=== PATIENT | female | born 1975 | race Caucasian/White ===

== ENCOUNTER 2017-09-30 03:44 | Emergency (ER) | payer SELFPAY ==
[2017-09-30 04:02] VITALS: BP 120/91; PULSE 102; RESP 20; TEMP 98.2
[2017-09-30] MEDS ORDERED: VENLAFAXINE HCL 50 MG TAB PO STA ×2 (04:21)
--- NOTE | 2017-09-30 04:23 | ED ---
Recheck HPI - General Chief Complaint: Recheck/Abnormal Lab/Rx Stated Complaint: Med refill Time Seen by Provider: 09/30/17 04:04 Source: patient Mode of arrival: ambulatory Limitations: no limitations - History of Present Illness Initial Comments: 42-year-old female patient presents to the emergency department today requesting refill of her Effexor prescription. Patient states that she has been out of this medication for the last 4 days. States that she is starting to feel antsy and withdrawal symptoms. States that she cannot focus. States that she has withdrawn from this medication before her symptoms are similar. She states that her nurse practitioner [facility] canceled her appointment so she was unable to refill the prescription. States she does have a new appointment on the . Patient denies any recent rash, fever, chills, shortness breath, chest pain, abdominal pain, nausea, vomiting, diarrhea, constipation, back pain , numbness, tingling, dizziness, weakness, hematuria, dysuria, urinary urgency, urinary frequency, headache, visual changes, or any other complaints. - Related Data Home Medications Medication Instructions Recorded Confirmed Venlafaxine HCl [Effexor XR] 150 mg PO DAILY 09/30/17 09/30/17 Previous Rx's Medication Instructions Recorded Venlafaxine HCl [Effexor XR] 150 mg PO DAILY #7 [email or web address] 09/30/17 Allergies Allergy/AdvReac Type Severity Reaction Status Date / Time No Known Allergies Allergy Verified 09/30/17 04:02 Review of Systems ROS Statement: Those systems with pertinent positive or pertinent negative responses have been documented in the HPI. ROS Other: All systems not noted in ROS Statement are negative. Past Medical History Past Medical History: No Reported History History of Any Multi-Drug Resistant Organisms: None Reported Past Surgical History: Section, Hysterectomy Past Psychological History: Depression Smoking Status: Current every day smoker Past Alcohol Use History: None Reported Past Drug Use History: None Reported General Exam Limitations: no limitations General appearance: alert, in no apparent distress, anxious, other (This is a well-developed, well-nourished adult female patient who appears anxious. Vital signs upon presentation are temperature 98.2F, pulse 102, respirations 20, blood pressure 120/91, pulse ox 100% on room air.) Eye exam: Present: normal appearance, PERRL, EOMI. Absent: scleral icterus, conjunctival injection, periorbital swelling ENT exam: Present: normal exam, normal oropharynx, mucous membranes moist Respiratory exam: Present: normal lung sounds bilaterally. Absent: respiratory distress, wheezes, rales, rhonchi, stridor Cardiovascular Exam: Present: regular rate, normal rhythm, normal heart sounds. Absent: systolic murmur, diastolic murmur, rubs, gallop, clicks GI/Abdominal exam: Present: soft, normal bowel sounds. Absent: distended, tenderness, guarding, rebound, rigid Neurological exam: Present: alert, oriented X3, CN II-XII intact Psychiatric exam: Present: normal affect, normal mood Skin exam: Present: warm, dry, intact, normal color. Absent: rash Course Vital Signs 09/30/17 03:58 Temperature 98.2 F Pulse Rate 102 H Respiratory 20 Rate Blood Pressure 120/91 O2 Sat by Pulse 100 Oximetry Medical Decision Making - Medical Decision Making 42-year-old female patient presented to the emergency department today requesting refill on her Effexor prescription. Physical examination is unremarkable. Patient was given a dose here in the emergency department. She was given a prescription for 1 weeks worth of Effexor. She is instructed to follow-up with her nurse practitioner she has planned. She is instructed to return here immediately for any new, worsening, or concerning symptoms. She verbalizes understanding and agrees with this plan. Disposition Clinical Impression: Encounter for medication refill Disposition: HOME SELF-CARE Condition: Good Instructions: Medicine Refill (ED) Additional Instructions: Follow-up with your psychiatrist as soon as possible for med refills. Return here immediately for any new, worsening, or concerning symptoms. Prescriptions: Venlafaxine HCl [Effexor XR] 150 mg PO DAILY #7 tab.[email or web address] Referrals: None,Stated [Primary Care Provider] - 1-2 days Time of Disposition: 04:22
[2017-09-30] MEDS ORDERED: VENLAFAXINE HCL ER 150 MG CAP PO ONE (04:30)
== END 2017-09-30 04:49 | disposition home or self-care (01) ==
LOC: EC 03:44
DX: Z76.0 Encounter for issue of repeat prescription (principal); F32.9 Major depressive disorder, single episode, unspecified; F17.200 Nicotine dependence, unspecified, uncomplicated; Z79.899 Other long term (current) drug therapy
CPT/HCPCS: 99281

== ENCOUNTER 2017-10-04 14:17 | Inpatient (IN) | payer OTHER ==
--- NOTE | 2017-10-04 14:59 | ED ---
Psych HPI - General Chief Complaint: Psychiatric Symptoms Stated Complaint: mental health Time Seen by Provider: 10/04/17 14:35 Source: patient, RN notes reviewed Mode of arrival: ambulatory Limitations: no limitations - History of Present Illness Initial Comments: This a 42-year-old female presents emergency Department with chief complaint of psychiatric issues. Patient states that she has not been on her Effexor and is causing her to feel depressed and suicidal. Patient does admit to drug use. She states that she is on methamphetamine user. Patient states she's not use today she states that she used yesterday. Patient is very fidgety though she states that her feet are just itchy. Patient denies any physical complaints. Patient denies chest pain, shortness breath, headache, dizziness, nausea vomiting diarrhea constipation. Patient states she is crying because she is depressed. - Related Data Previous Rx's Medication Instructions Recorded Venlafaxine HCl [Effexor XR] 150 mg PO DAILY #7 tab.[email or web address] 09/30/17 Allergies Allergy/AdvReac Type Severity Reaction Status Date / Time No Known Allergies Allergy Verified 10/04/17 15:07 Review of Systems ROS Statement: Those systems with pertinent positive or pertinent negative responses have been documented in the HPI. ROS Other: All systems not noted in ROS Statement are negative. Past Medical History Past Medical History: No Reported History History of Any Multi-Drug Resistant Organisms: None Reported Past Surgical History: Section, Hysterectomy Past Psychological History: Depression Smoking Status: Current every day smoker Past Alcohol Use History: None Reported Past Drug Use History: None Reported General Exam Limitations: no limitations General appearance: alert, in no apparent distress Head exam: Present: atraumatic, normocephalic, normal inspection Eye exam: Present: normal appearance, PERRL, EOMI. Absent: scleral icterus, conjunctival injection, periorbital swelling ENT exam: Present: normal exam, normal oropharynx, mucous membranes moist, TM's normal bilaterally, normal external ear exam Neck exam: Present: normal inspection, full ROM. Absent: tenderness, meningismus, lymphadenopathy Respiratory exam: Present: normal lung sounds bilaterally. Absent: respiratory distress, wheezes, rales, rhonchi, stridor Cardiovascular Exam: Present: normal rhythm, tachycardia, normal heart sounds. Absent: systolic murmur, diastolic murmur, rubs, gallop, clicks GI/Abdominal exam: Present: soft, normal bowel sounds. Absent: distended, tenderness, guarding, rebound, rigid Neurological exam: Present: alert, oriented X3, CN II-XII intact Psychiatric exam: Present: anxious, other (Tearful) Skin exam: Present: warm, dry, intact, normal color. Absent: rash Course Vital Signs 10/04/17 14:22 Temperature 97.7 F Pulse Rate 127 H Respiratory 24 Rate Blood Pressure 134/82 O2 Sat by Pulse 98 Oximetry Disposition Clinical Impression: Psychosis, Suicidal ideation Disposition: ADMITTED IP TO THIS HOSP Condition: Stable Referrals: None,Stated [REFERRING] - 1-2 days
[2017-10-04] MEDS ORDERED: LORazepam 1 MG TAB PO STA (16:38)
[2017-10-04] MEDS ORDERED: ZIPRASIDONE 20 MG VIAL IM PRN (16:59)
[2017-10-04] MEDS ORDERED: MAGNESIUM HYDROXIDE 2,400 MG/10 ML CUP PO PRN (16:59)
[2017-10-04] MEDS ORDERED: ACETAMINOPHEN TAB 325 MG TAB PO PRN (16:59)
[2017-10-04] MEDS ORDERED: MAG HYDROX/AL HYDROX/SIMETH 30 ML CUP PO PRN (16:59)
[2017-10-04] MEDS ORDERED: LORazepam 2 MG/ML INJ IM PRN (17:03)
[2017-10-04 17:05] LABS: Amphetamine Screen,Urine Detected (NotDetected); Barbiturate Screen,Urine Not Detected (NotDetected); Benzodiazepines Screen,Urine Not Detected (NotDetected); Cocaine Screen,Urine Not Detected (NotDetected); Methadone Screen, Urine Not Detected (NotDetected); Opiate Screen,Urine Not Detected (NotDetected); Oxycodone Screen, Urine Not Detected (NotDetected); Phencyclidine Screen,Urine Not Detected (NotDetected); Tricyclic Antidepressant,Urine Not Detected (NotDetected); Urn Cannabinoid Scrn Not Detected (NotDetected)
[2017-10-04 17:09] LABS: Appearance,Urine Cloudy (Clear); Bacteria,Urine Rare /hpf; Bilirubin,Urine Negative (Negative); Blood,Urine Negative (Negative); Color,Urine Yellow; Glucose,Urine (UA) Negative (Negative); Hyaline Casts,Urine 21 /lpf (0-2); Ketones,Urine Negative (Negative); Leukocyte Esterase,Urine Moderate (Negative); Mucus,Urine Many /hpf; Nitrite,Urine Negative (Negative); Protein,Urine 1+ (Negative); RBC,Urine 4 /hpf (0-5); Specific Gravity,Urine 1.022 (1.001-1.035); Urobilinogen,Urine <2.0 mg/dL (<2.0); WBC,Urine 85 /hpf (0-5)
[2017-10-04] MEDS ORDERED: IBUPROFEN 400 MG TAB PO PRN (19:59)
--- NOTE | 2017-10-04 21:06 | CONS ---
CONSULTATION REASON FOR CONSULTATION: Advice regarding UTI and other medical issues requested by Psychiatry. HISTORY OF PRESENT ILLNESS: This is a 42-year-old woman with a past medical history of depression, history of polysubstance abuse, who was admitted for psychiatric evaluation, suicidal ideation patient. The patient is complaining of left jaw pain, has an earache. She also complains of dysuria. Urine exam shows history of UTI. There is no history of fever, rigors. No history of headache, loss of consciousness, seizures. PAST MEDICAL HISTORY: History of depression, history of polysubstance abuse. HOME MEDICATIONS: Effexor XR 150 mg daily. ALLERGIES: None. FAMILY HISTORY: Patient is adopted, unknown. SOCIAL HISTORY: History of smoking. No history of alcohol intake. REVIEW OF SYSTEMS: ENT: As mentioned earlier. CARDIOVASCULAR: No angina, palpitations. RESPIRATORY: No cough or hemoptysis. GI: No nausea or vomiting. : No dysuria. NERVOUS: No numbness or weakness. ALLERGY/IMMUNOLOGY: No asthma or hay fever. MUSCULOSKELETAL: As mentioned earlier. HEMATOLOGY/ONCOLOGY: No history of anemia. ENDOCRINE: No history of diabetes, hypothyroidism. CONSTITUTIONAL: As mentioned earlier. DERMATOLOGY: Negative. RHEUMATOLOGY: Negative. PSYCHIATRY: As mentioned earlier. PHYSICAL EXAMINATION: Alert, oriented x3. Pulse 94, blood pressure 130/78, respirations 20, temperature 97 degrees, pulse ox 100% on room air. HEENT: Conjunctivae normal. Oral mucosa moist. Oral cavity shows some swelling of the gums appreciated. NECK: No jugular venous distention. No carotid bruits. No lymph node enlargement. CARDIOVASCULAR: S1, S2 muffled. RESPIRATORY: Breath sounds diminished in the bases. No rhonchi. No crackles. ABDOMEN: Soft, nontender. No mass palpable. LEGS: No edema. No swelling. NERVOUS SYSTEM: Higher functions as mentioned earlier. Cranial nerves 2-12 grossly intact. The patient moves all normal and symmetrical. Head movements are full in all directions. No nystagmus. Pupils are normal. Otherwise, the tongue protrudes in the midline. Moves all 4 limbs. Power is normal. No weakness and no sensory abnormalities. LYMPHATIC: No lymphadenopathy in neck or axillae. JOINTS: No active deforming arthropathy. LABS: At this time shows CBC not available. The UA shows possible UTI, 85 WBCs. Drug screen positive for amphetamines and methamphetamines. ASSESSMENT: 1. Depression with suicidal ideations. 2. Acute urinary tract infection. 3. Left dental pain with possible dental caries. 4. Depression. 5. Polysubstance abuse, including cocaine, marijuana, methamphetamine. 6. History of nicotine dependence. RECOMMENDATIONS AND DISCUSSION: In this 42-year-old woman who presented with multiple complex medical issues, will monitor the patient closely. I would recommend a course of antibiotics. Otherwise, I would also continue symptomatic treatment for the pain. I will be happy to review any abnormal labs. Otherwise, the patient may be asked to follow with primary physician closely after discharge. Thank you Dr. Novak, for letting us participate in the care of this patient. MMALEXL / IJN: [id number] /
[2017-10-04] MEDS: SULFAMETHOX-TMP 800-160MG 1 EACH TAB PO SCH (21:09)
[2017-10-05 07:04] VITALS: RESP 16
[2017-10-05] MEDS: SULFAMETHOX-TMP 800-160MG 1 EACH TAB PO SCH ×2 (09:37→21:05)
[2017-10-05] MEDS: NICOTINE 14MG/24HR PATCH TRANSDERM SCH (09:37)
[2017-10-05 09:42] LABS: Basophils % (A) 1 %; Eosinophils # (A) 0.1 k/uL (0-0.7); Eosinophils % (A) 2 %; HCT 44.5 % (34.0-46.0); HGB 15.3 gm/dL (11.4-16.0); Lymphocytes # (A) 1.9 k/uL (1.0-4.8); Lymphocytes % (A) 28 %; MCH 32.4 pg (25.0-35.0); MCHC 34.4 g/dL (31.0-37.0); MCV 94.3 fL (80.0-100.0); Mean Platelet Volume 7.4; Monocytes # (A) 0.3 k/uL (0-1.0); Monocytes % (A) 4 %; Neutrophils # (A) 4.3 k/uL (1.3-7.7); Neutrophils % (A) 64 %; Platelet Count 203 k/uL (150-450); RBC 4.72 m/uL (3.80-5.40); RDW 11.9 % (11.5-15.5); WBC 6.8 k/uL (3.8-10.6)
[2017-10-05 10:04] LABS: ALT 120 U/L (9-52); AST 70 U/L (14-36); Albumin 3.7 g/dL (3.5-5.0); Alkaline Phosphatase 58 U/L (38-126); Anion Gap 10 mmol/L; Blood Urea Nitrogen 14 mg/dL (7-17); Calcium 9.3 mg/dL (8.4-10.2); Carbon Dioxide 27 mmol/L (22-30); Chloride 104 mmol/L (98-107); Glucose 93 mg/dL (74-99); Potassium 4.5 mmol/L (3.5-5.1); Sodium 141 mmol/L (137-145); Total Bilirubin 0.2 mg/dL (0.2-1.3); Total Protein 6.4 g/dL (6.3-8.2)
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
[2017-10-05] MEDS: VENLAFAXINE HCL ER 37.5 MG CAP PO SCH (11:36)
[2017-10-05] MEDS: ARIPiprazole 2 MG TAB PO SCH (21:05)
[2017-10-05] MEDS: MELATONIN 3 MG TABLET PO SCH (21:05)
[2017-10-06] MEDS: SULFAMETHOX-TMP 800-160MG 1 EACH TAB PO SCH ×2 (09:26→20:11)
[2017-10-06] MEDS: VENLAFAXINE HCL ER 37.5 MG CAP PO SCH (09:45)
[2017-10-06] MEDS: NICOTINE 14MG/24HR PATCH TRANSDERM SCH (09:45)
--- NOTE | 2017-10-06 14:29 | P.PN ---
Progress Note - Text Progress Note Date: 10/06/17 Interval history: Patient reports that she has some jaw discomfort today. We discussed that she has Tylenol and Motrin ordered as needed. She seems to describe her mood is doing better than when she was admitted to the hospital. She is seen in cross coverage for Dr. Novak. She does not seem to voice any adverse psychotropic medication side effects. Mental status exam: She is alert and cooperative with the interview. Her affect overall is restricted. Her mood she describes is doing better overall. She denies any thoughts of harm to self or others. I do not see any evidence of psychosis. She does not display any agitation. Plan: Patient will be continued on current psychotropic medication regimen. We' ll continue to cover this patient for Dr. Novak through the weekend.
[2017-10-06] MEDS: LORazepam 1 MG TAB PO PRN (20:11)
[2017-10-06] MEDS: MELATONIN 3 MG TABLET PO SCH (20:11)
[2017-10-06] MEDS: ARIPiprazole 2 MG TAB PO SCH (20:11)
[2017-10-07] MEDS: VENLAFAXINE HCL ER 37.5 MG CAP PO SCH (08:19)
[2017-10-07] MEDS: SULFAMETHOX-TMP 800-160MG 1 EACH TAB PO SCH ×2 (08:19→20:09)
[2017-10-07] MEDS: NICOTINE 14MG/24HR PATCH TRANSDERM SCH (08:20)
--- NOTE | 2017-10-07 15:58 | P.PN ---
Progress Note - Text Progress Note Date: 10/07/17 Interval history: Patient is seen in cross coverage today for Dr. Novak. She relays that her mood is doing better overall. She is having less of the crying spells and her suicidal ideations are less frequent now. She does not voice any adverse psychotropic medication side effects. She says she still dealing with some jaw pain. Her sleep is interrupted last night. She does seem to be eating enough. Mental status exam: She is alert and cooperative with the interview. Her speech is fluent, not rapid or pressured. Her thought processes are organized. Her mood is described as improved. She states that her thoughts of suicide have become less frequent. She denies any thoughts of harm to others. No evidence of psychosis or agitation. Plan: We'll maintain current psychotropic medication regimen. Dr. Novak to resume care this patient starting tomorrow. Continue to monitor regarding any suicidal ideations.
[2017-10-07] MEDS: ARIPiprazole 2 MG TAB PO SCH (20:09)
[2017-10-07] MEDS: MELATONIN 3 MG TABLET PO SCH (20:10)
[2017-10-08] MEDS: VENLAFAXINE HCL ER 37.5 MG CAP PO SCH (08:25)
[2017-10-08] MEDS: NICOTINE 14MG/24HR PATCH TRANSDERM SCH (08:25)
[2017-10-08] MEDS: SULFAMETHOX-TMP 800-160MG 1 EACH TAB PO SCH ×2 (08:25→21:19)
[2017-10-08] MEDS ORDERED: VENLAFAXINE HCL ER 37.5 MG CAP PO STA (08:45)
[2017-10-08] MEDS: ARIPiprazole 2 MG TAB PO SCH (09:00)
--- NOTE | 2017-10-08 09:50 | P.PN ---
Progress Note - Text Progress Note Date: 10/08/17 Interval History: Patient is a 42-year-old female who was seen this morning and she reports that her crying spells have decreased significantly, she is no longer having any suicidal ideation but still feeling tired and hopeless. Patient is unable to verbalize why she is continuing to feel hopeless. She states that she has not been sleeping well and is waking up every hour. Patient states that she is not attending any groups but plans on doing so today. Patient reports that her focus has improved. She reported no side effects from the medication. Mental Status: Appearance/Attitude: Patient was in her room lying in bed, in a hospital gown, makes good eye contact and is cooperative. Behavior: Patient does not display any psychomotor agitation or retardation. Speech/Language: Patient's speech is spontaneous and of normal volume and rhythm and she is coherent. Thought Process: Patient is more goal-directed, she is less vague in her answers there is no evidence of loose associations or flight of ideas and she is not circumstantial Thought Content: Patient denies auditory or visual hallucinations, no delusions or paranoid ideation were elicited. Patient states that her crying spells have decreased significantly but she reports still feeling tired secondary to not sleeping through the night. She states that her appetite is good. She continues to report feeling hopeless. Suicidal/Homicidal Ideation: Patient denies any current suicidal or homicidal ideation. Sensorium/Cognition: Patient is alert and oriented to person, place, and time and her recent and remote memory are grossly intact. Mood/Affect: Patient's mood is less depressed, her affect is brighter Insight/Judgment: Patient's insight and judgment are fair Assessment: Patient reports that her crying spells and decreased, she is not having any suicidal thoughts but continues to feel hopeless and tired. She states her sleep is still disrupted. Patient was encouraged to attend groups that she has not been doing so and is spending the time in her room in bed during the day. Patient reports no side effects from the medications and the patient is more focused today and less vague in her responses. Plan: Will increase of Effexor to 75 mg extended release in the morning to target her depression and change the Abilify 2 mg from at bedtime to morning to see if this is caused any sleep disruption. Patient will also continue on melatonin 3 mg at bedtime to target her sleep. Patient was encouraged to stay up and out of bed today and attend groups and activities. Patient continues to require hospitalization to further stabilize her mood. Will order free T4 due to low TSH
[2017-10-08] MEDS: MELATONIN 3 MG TABLET PO SCH (21:19)
[2017-10-09] MEDS: SULFAMETHOX-TMP 800-160MG 1 EACH TAB PO SCH ×2 (08:22→20:42)
[2017-10-09] MEDS: ARIPiprazole 2 MG TAB PO SCH (08:22)
[2017-10-09] MEDS: NICOTINE 14MG/24HR PATCH TRANSDERM SCH (08:22)
[2017-10-09] MEDS: VENLAFAXINE HCL ER 75 MG CAP PO SCH (08:22)
--- NOTE | 2017-10-09 11:26 | P.PN ---
Progress Note - Text Progress Note Date: 10/09/17 Interval History: Patient is a 42-year-old female who was seen today and reports that moving the Abilify to the morning worked much better for her. She states that she slept through the evening without any interruption and feels rested and motivated this morning. She states that she does not feel like returning to bed and feels like attending groups and activities. She states that she is not feeling suicidal and states that she is not feeling as depressed. She reports that her thoughts are also more organized. Patient states that she is on having any side effects from the medication. Mental Status: Appearance/Attitude: Patient is appropriately dressed, makes good eye contact and is cooperative. Behavior: Patient does not exhibit any psychomotor agitation or retardation. Speech/Language: Patient is spontaneous, speech is of normal volume and rhythm and she is coherent. Thought Process: Patient is goal-directed, there is no evidence of loose associations or flight of ideas and she is not circumstantial or tangential. Thought Content: Patient denies any auditory or visual hallucinations and no delusions or paranoid ideation were elicited. Patient reports that she slept well last evening and feels rested and motivated this morning. She states that she is feeling more energized and has an interest to do things. Patient reports that her appetite is good. She states that her thinking is much clearer and more organized. Suicidal/Homicidal Ideation: Patient denies any current suicidal or homicidal ideation. Sensorium/Cognition: Patient is alert and oriented to person, place, and time and her recent and remote memory are grossly intact, the patient states that she feels more organized and able to focus Mood/Affect: Patient's mood is euthymic and her affect is appropriate Insight/Judgment: Patient's insight and judgment are fair. Assessment: Patient reports feeling less depressed, more organized and focused and also more motivated this morning and she slept well last night without interruption. She reports no side effects from the medication and feels the move of the Abilify to the morning has been beneficial. She states that she is not having any suicidal ideation and is ready for discharge. Patient states that she will be living with a friend call what and will follow up at [facility] after discharge. Plan: Patient will continue on Effexor 75 mg extended release in the morning, Abilify 2 mg in the morning and melatonin 3 mg at bedtime. She reports no side effects from the medications and states that her mood has been improving and has her sleep. Patient and I discussed discharge tomorrow when she was agreeable with this plan, she will follow up with [facility].
[2017-10-09] MEDS: MELATONIN 3 MG TABLET PO SCH (20:43)
[2017-10-09] MEDS: LORazepam 1 MG TAB PO PRN (20:44)
[2017-10-10 06:55] VITALS: BP 107/55; PULSE 84; TEMP 98
[2017-10-10] MEDS: VENLAFAXINE HCL ER 75 MG CAP PO SCH (08:09)
[2017-10-10] MEDS: ARIPiprazole 2 MG TAB PO SCH (08:09)
[2017-10-10] MEDS: NICOTINE 14MG/24HR PATCH TRANSDERM SCH (08:09)
[2017-10-10] MEDS: SULFAMETHOX-TMP 800-160MG 1 EACH TAB PO SCH (08:09)
--- NOTE | 2017-10-10 08:59 | P.DS ---
Providers Date of admission: 10/04/17 16:53 Expected date of discharge: 10/10/17 Attending physician: Adelia Novak MD Consults: 10/04/17 16:59 Consult Physician Routine Consulting Provider: Jeanette Gray Consult Reason/Comments: Medical Management Do you want consulting provider notified?: Yes Primary care physician: [facility] Course: Discharge Diagnosis: Substance-induced depressive disorder, methamphetamine use disorder, mild Reason for Admission: Patient is a 42-year-old female who brought herself to the emergency room reporting that she had thoughts of suicide with a plan to take an overdose. Patient states that she has been treated at [facility] and had been on Effexor 150 mg daily but for the last 1-1/2 weeks has not been taking any medication because she ran out and states that she is unsure of why her insurance was canceled. Patient states that the Effexor was helping for her depression when it is been increased to 150 back in March but for the last several months it has not been working. She states that she was told to start Abilify and given a prescription but she did not fill the prescription her take the medication. Patient reports that she is tired of failing in life, doesn't have any housing and can't keep a job and continues to self sabotage. She states that she's been using methamphetamine every other week and uses this to help her focus. She states that she quits her jobs because she just doesn't feel like going. Patient states that she is either sleeping too much or not enough and continues to feel tired, with decreased interest and motivation to do things and not caring for her ADLs. She states that she feels hopeless and helpless. She states she is either overeating or not eating at all. Patient states that she can't recall when she was last seen at [facility] and thinks that it was over several months ago. Patient states she thought of suicide with an overdose of medication. Patient states that the first time she was treated for depression was when she was 28 years old she was hospitalized after cutting her wrists in a suicide attempt and she was 2 months at the time. She states that this will be her second inpatient psychiatric admission. Patient reports similar symptoms in the past, no other suicide attempts and states that she has never been able to keep a job for any length of time. 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 Patient also became tearful when discussing that her children were taken away from her in 2010 because she wasn't stable, she states due to not working and not having a home. She states that her son will be 17 soon and her daughter is 13 years of age from 2 different partners. Patient does not endorse any symptoms of paranoia or delusional ideation currently or in the past, does not endorse any manic symptoms and does not endorse any anxiety symptoms. Patient states that she has a hard time following through with any thing, can't keep a job, doesn't keep her follow-up appointments and states that she feels like a failure. Mental status on Admission: Appearance/Attitude: Patient is dressed in a hospital gown, makes intermittent eye contact and is cooperative. Behavior: Patient does not exhibit any psychomotor agitation or retardation. Speech/Language: Speech is spontaneous and of normal volume and rhythm and she is coherent. Thought Process: Patient needs redirection to remain goal-directed, at times she is vague, there is no evidence of loose association or flight of ideas. Thought Content: Patient denies any auditory or visual hallucinations and no delusions or paranoid ideation were elicited. Patient reports that she has no motivation or interest to do things and is feeling tired and hopeless. Patient states she is overeating some days and not eating other days, she is also oversleeping or not sleeping well. Patient reports that she was not caring for her ADLs at home. Patient states that she feels like a failure and is self sabotaging all the time. She states that she can't keep a job and was using methamphetamine to improve her focus. Suicidal/Homicidal Ideation: Patient states she continues to have suicidal thoughts, no current plan or intent to act and no current homicidal ideation Sensorium/Cognition: Patient is alert and oriented to person, place, and time and her recent and remote memory are grossly intact, the patient is vague at times with her responses to questions Mood/Affect: Patient's mood is irritable, she was tearful at times and her affect was appropriate to her mood Insight/Judgment: Patient's insight and judgment are fair Hospital Course: Patient was admitted on a voluntary basis and placed on routine precautions and group and activity therapy were ordered. Patient also had routine laboratory studies and a medical consultation. Patient reported that she felt the Effexor had been beneficial for her and so it was restarted at 37.5 mg extended release in the morning. Patient was having difficulty organizing her thoughts, stated that Abilify had been recommended to be added and so we began Abilify 2 mg initially at bedtime. Patient had difficulty sleeping and was waking up repeatedly and the Abilify was moved to the morning and melatonin 3 mg at bedtime was begun. Patient's Effexor was increased to 75 mg in the morning and the patient began to notice a change. Patient became more organized in her thinking, she reported increased energy and motivation to do things and began to attend groups and activities. Patient reported her sleep improved and she was sleeping through the night. Patient no longer reported feeling depressed, hopeless or like a failure. Patient reported that she had energy to do things and states that this is the reason that she was using methamphetamine in the past was to improve her energy level. Patient began attending groups and activities and participating and stated that those were helpful, she reported no longer feeling depressed, like a failure and had energy and motivation to do things. Patient reported no side effects from the medication. Patient was placed on Bactrim for a 7 day course secondary to her urinalysis. Patient felt she was ready to be discharged. Allergies No Known Allergies Allergy (Verified 10/04/17 17:27) Laboratory Last Values WBC 6.8 k/uL (3.8-10.6) 10/05/17:17 RBC 4.72 m/uL (3.80-5.40) 10/05/17 09:17 Hgb 15.3 gm/dL (11.4-16.0) 10/05/17 09:17 Hct 44.5 % (34.0-46.0) 10/05/17 09:17 MCV 94.3 fL (80.0-100.0) 10/05/17 09:17 MCH 32.4 pg (25.0-35.0) 10/05/17 09:17 MCHC 34.4 g/dL (31.0-37.0) 10/05/17 09:17 RDW 11.9 % (11.5-15.5) 10/05/17 09:17 Plt Count 203 k/uL (150-450) 10/05/17 09:17 Neutrophils % 64 % 10/05/17 09:17 Lymphocytes % 28 % 10/05/17 09:17 Monocytes % 4 % 10/05/17 09:17 Eosinophils % 2 % 10/05/17 09:17 Basophils % 1 % 10/05/17 09:17 Neutrophils # 4.3 k/uL (1.3-7.7) 10/05/17 09:17 Lymphocytes # 1.9 k/uL (1.0-4.8) 10/05/17 09:17 Monocytes # 0.3 k/uL (0-1.0) 10/05/17 09:17 Eosinophils # 0.1 k/uL (0-0.7) 10/05/17 09:17 Basophils # 0.0 k/uL (0-0.2) 10/05/17 09:17 Sodium 141 mmol/L (137-145) 10/05/17 09:17 Potassium 4.5 mmol/L (3.5-5.1) 10/05/17 09:17 Chloride 104 mmol/L (98-107) 10/05/17 09:17 Carbon Dioxide 27 mmol/L (22-30) 10/05/17 09:17 Anion Gap 10 mmol/L 10/05/17 09:17 BUN 14 mg/dL (7-17) 10/05/17 09:17 Creatinine 0.70 mg/dL (0.52-1.04) 10/05/17 09:17 Est GFR (CKD-EPI)AfAm >90 (>60 ml/min/1.73 sqM) 10/05/17 09:17 Est GFR (CKD-EPI)NonAf >90 (>60 ml/min/1.73 sqM) 10/05/17 09:17 Glucose 93 mg/dL (74-99) 10/05/17 09:17 Calcium 9.3 mg/dL (8.4-10.2) 10/05/17 09:17 Total Bilirubin 0.2 mg/dL (0.2-1.3) 10/05/17 09:17 AST 70 U/L (14-36) H 10/05/17 09:17 ALT 120 U/L (9-52) H 10/05/17 09:17 Alkaline Phosphatase 58 U/L (38-126) 10/05/17 09:17 Total Protein 6.4 g/dL (6.3-8.2) 10/05/17 09:17 Albumin 3.7 g/dL (3.5-5.0) 10/05/17 09:17 TSH 0.447 mIU/L (0.465-4.680) L 10/05/17 09:17 Free T4 0.88 ng/dL (0.78-2.19) 10/05/17 09:17 Urine Color Yellow 10/04/17 16:36 Urine Appearance Cloudy (Clear) H 10/04/17 16:36 Urine pH 6.0 (5.0-8.0) 10/04/17 16:36 Ur Specific [place] 1.022 (1.001-1.035) 10/04/17 16:36 Urine Protein 1+ (Negative) H 10/04/17 16:36 Urine Glucose (UA) Negative (Negative) 10/04/17 16:36 Urine Ketones Negative (Negative) 10/04/17 16:36 Urine Blood Negative (Negative) 10/04/17 16:36 Urine Nitrite Negative (Negative) 10/04/17 16:36 Urine Bilirubin Negative (Negative) 10/04/17 16:36 Urine Urobilinogen <2.0 mg/dL (<2.0) 10/04/17 16:36 Ur Leukocyte Esterase Moderate (Negative) H 10/04/17 16:36 Urine RBC 4 /hpf (0-5) 10/04/17 16:36 Urine WBC 85 /hpf (0-5) H 10/04/17 16:36 Urine Bacteria Rare /hpf (None) H 10/04/17 16:36 Hyaline Casts 21 /lpf (0-2) H 10/04/17 16:36 Urine Mucus Many /hpf (None) H 10/04/17 16:36 Urine HCG, Qual Not Detected (Not Detectd) 10/04/17 16:36 Urine Opiates Screen Not Detected (NotDetected) 10/04/17 16:36 Ur Oxycodone Screen Not Detected (NotDetected) 10/04/17 16:36 Urine Methadone Screen Not Detected (NotDetected) 10/04/17 16:36 Ur Propoxyphene Screen Not Detected (NotDetected) 10/04/17 16:36 Ur Barbiturates Screen Not Detected (NotDetected) 10/04/17 16:36 U Tricyclic Antidepress Not Detected (NotDetected) 10/04/17 16:36 Ur Phencyclidine Scrn Not Detected (NotDetected) 10/04/17 16:36 Ur Amphetamines Screen Detected (NotDetected) H 10/04/17 16:36 U Methamphetamines Scrn Detected (NotDetected) H 10/04/17 16:36 U Benzodiazepines Scrn Not Detected (NotDetected) 10/04/17 16:36 Urine Cocaine Screen Not Detected (NotDetected) 10/04/17 16:36 U Marijuana (THC) Screen Not Detected (NotDetected) 10/04/17 16:36 Discharge Mental Status: Appearance/Attitude: Patient was appropriately dressed , made good eye contact and was cooperative Behavior: Patient did not display any psychomotor agitation or retardation. Speech/Language: Patient's speech was spontaneous of normal volume and rhythm and she was coherent Thought Process: Patient was goal-directed she was not tangential or circumstantial and no loose association or flight of ideas were elicited. Thought Content: Patient denied auditory and visual hallucinations and no delusions or paranoid ideation were elicited. Patient reported that she was no longer feeling like a failure or hopeless. She stated that she had energy and interest and motivation to do things. She reported that her sleep and appetite were good. Suicidal/Homicidal Ideation: Patient denied any current suicidal or homicidal ideation. Sensorium/Cognition: Patient was alert and oriented to person, place, and time and her recent and remote memory were grossly intact. Patient was much more organized in her thinking Mood/Affect: Patient's mood was pleasant and her affect was appropriate Insight/Judgment: Patient's insight and judgment are fair Risk Assessment: Patient's risk of self-harm remains moderate should she use drugs, been noncompliant with follow-up and medication Discharge Plan: Patient will be discharged to live with a friend, states she will look for work. Patient will continue on Abilify 2 mg in the morning, Effexor 75 mg extended release in the morning and states that she would like to try nicotine patch to stop smoking. Patient will also continue on melatonin 3 mg at bedtime. Patient will complete her 7 day course of treatment with Bactrim. Patient will follow up at [facility] and was encouraged to be compliant with medication and follow-up appointments. Patient was encouraged to avoid any alcohol or drugs. Patient will be given a prescription for the Abilify, Effexor, nicotine patch and Bactrim patient will purchase melatonin [id number]. Patient Condition at Discharge: Stable Plan - Discharge Summary Discharge Rx Participant: No New Discharge Prescriptions: New ARIPiprazole [Abilify] 2 mg PO DAILY #14 tab Melatonin 3 mg PO HS tablet Nicotine 14Mg/24Hr Patch [Habitrol] 1 patch TRANSDERM DAILY #28 patch Sulfamethox-Tmp 800-160Mg [Bactrim DS 800-160 mg] 1 each PO BID #3 tab Venlafaxine HCl ER [Effexor XR] 75 mg PO DAILY #14 cap.er.24h Discontinued Venlafaxine HCl [Effexor XR] 150 mg PO DAILY #7 tab.er.24 Discharge Medication List ARIPiprazole [Abilify] 2 mg PO DAILY #14 tab 10/10/17 [Rx] Melatonin 3 mg PO HS tablet 10/10/17 [Rx] Nicotine 14Mg/24Hr Patch [Habitrol] 1 patch TRANSDERM DAILY #28 patch 10/10/17 [ Rx] Sulfamethox-Tmp 800-160Mg [Bactrim DS 800-160 mg] 1 each PO BID #3 tab 10/10/17 [Rx] Venlafaxine HCl ER [Effexor XR] 75 mg PO DAILY #14 cap.er.24h 10/10/17 [Rx] Follow up Appointment(s)/Referral(s): [facility] [Outside] - 10/11/17 9:00 am (10-11-17 @ 9:00 with Juanis Mcarthur and Shanon Ross 10-23-17 @ 8:00 with [facility]) [facility] [NON[facility]STAFF] - As Needed Patient Instructions/Handouts: Brief Psychotic Disorder (DC), Suicide Prevention for Adults (DC) Activity/Diet/Wound Care/Special Instructions: Activity and diet as tolerated. Avoid the use of street drugs and alcohol. Remove all firearms from home. Take all medications as prescribed. When you are in need of refills of your medication please contact your medical provider and/ or outpatient psychiatrist to have this done. Please go to scheduled outpatient appointment for aftercare. If symptoms return or become worse you can call the Crisis Line at and/or go to the nearest emergency room for an evaluation. Discharge Disposition: HOME SELF-CARE
== END 2017-10-10 13:31 | disposition home or self-care (01) | DRG 897 ==
LOC: EC 14:17 → 3MHU 16:53
PROVIDERS: ADMIT Psychiatry & Neurology Psychiatry; ATTEND Psychiatry & Neurology Psychiatry
DX: F15.14 Other stimulant abuse with stimulant-induced mood disorder (principal); F14.10 Cocaine abuse, uncomplicated; R45.851 Suicidal ideations; N39.0 Urinary tract infection, site not specified; F15.10 Other stimulant abuse, uncomplicated; F17.200 Nicotine dependence, unspecified, uncomplicated; F32.9 Major depressive disorder, single episode, unspecified; K08.89 Other specified disorders of teeth and supporting structures; Z62.810 Personal history of physical and sexual abuse in childhood; Z65.3 Problems related to other legal circumstances; Z79.899 Other long term (current) drug therapy; Z90.710 Acquired absence of both cervix and uterus; Z91.19 Patient's noncompliance with other medical treatment and regimen; Z91.410 Personal history of adult physical and sexual abuse
CPT/HCPCS: 80053; 80306; 81001; 81025; 82075; 84439; 84443; 85025; 99285

== ENCOUNTER 2018-10-02 17:09 | Emergency (ER) | payer OTHER ==
[2018-10-02 18:06] VITALS: BP 117/72; PULSE 86; RESP 16; TEMP 98.3
--- NOTE | 2018-10-02 19:06 | ED ---
General Adult HPI - General Chief complaint: Upper Respiratory Infection Stated complaint: sore throat Time Seen by Provider: 10/02/18 18:51 Source: patient, RN notes reviewed, old records reviewed Mode of arrival: ambulatory Limitations: no limitations - History of Present Illness Initial comments: 42-year-old male patient no pertinent past medical history presents ED approximately 10 days of sinus pressure, rhinitis, sore throat, dry cough. Patient has not taken anything for this problem. Patient to this feels similar to Frontal sinus infections has had in the past. Patient states that she feels she is coughing because of the irritation of her throat. Patient states that the cough is non-productive. Patient denies chest pain shortness of breath. Patient denies any other complaints today. Systemic: Pt denies fatigue, myalgia, fever/chills, rash. Pt denies weakness, night sweats, weight loss. Neuro: Pt denies headache, visual disturbances, syncope or pre-syncope. HEENT: Pt denies ocular discharge or irritation, otalgia, rhinorrhea, pharyngitis or notable lymphadenopathy. Cardiopulmonary: Pt denies chest pain, SOB, heart palpitations, dyspnea on exertion. Abdominal/GI: Pt denies abdominal pain, n/v/d. : Pt denies dysuria, burning w/ urination, frequency/urgency. Denies new onset urinary or bowel incontinence. MSK: Pt denies myalgia, loss of strength or function in extremities. Neuro: Pt denies new onset weakness, paresthesias. - Related Data Previous Rx's Medication Instructions Recorded ARIPiprazole [Abilify] 2 mg PO DAILY #14 tab 10/10/17 Melatonin 3 mg PO HS tablet 10/10/17 Nicotine 14Mg/24Hr Patch [Habitrol] 1 patch TRANSDERM DAILY #28 patch 10/10/17 Sulfamethox-Tmp 800-160Mg [Bactrim 1 each PO BID #3 tab 10/10/17 DS 800-160 mg] Venlafaxine HCl ER [Effexor XR] 75 mg PO DAILY #14 cap.er.24h 10/10/17 Amoxicillin/Potassium Clav 1 each PO Q12HR #20 tab 10/02/18 [Augmentin 875-125 Tablet] Fluticasone Propionate [Flonase 1 - 2 spray EA NOSTRIL DAILY 5 10/02/18 Allergy Relief] Days ml Oxymetazoline 0.05% Nasl [place] 2 spray EA NOSTRIL BID 3 Days #1 10/02/18 [Afrin 0.05% Nasal [place]] bottle Allergies Allergy/AdvReac Type Severity Reaction Status Date / Time No Known Allergies Allergy Verified 10/02/18 18:06 Review of Systems ROS Statement: Those systems with pertinent positive or pertinent negative responses have been documented in the HPI. ROS Other: All systems not noted in ROS Statement are negative. Past Medical History Past Medical History: No Reported History Additional Past Medical History / Comment(s): Pt. denies medical issues. History of Any Multi-Drug Resistant Organisms: None Reported Past Surgical History: Section, Hysterectomy Past Anesthesia/Blood Transfusion Reactions: No Reported Reaction Past Psychological History: Depression Smoking Status: Current every day smoker - Past Family History Father Family Medical History: Unable to Obtain Additional Family Medical History / Comment(s): Pt. reports she was adopted. Medical history in her family is unknown. Mother Family Medical History: No Reported History Additional Family Medical History / Comment(s): Pt. reports she was adopted. Medical history in her family is unknown. General Exam - General Exam Comments Initial Comments: Constitutional: NAD, AOX3, Pt has pleasant affect. HEENT: NC/AT, trachea midline, neck supple, no lymphadenopathy. Posterior pharynx non erythematous, without exudates. External ears appear normal, without discharge. TMs pale [place] bilaterally, no bulging erythema or perforation. Mucous membranes moist. Eyes PERRLA, EOM intact. There is no scleral icterus. No pallor noted. Frontal sinus pressure reproducible upon palpation. Cardiopulmonary: RRR, no murmurs, rubs or gallops, no JVD noted. Lungs CTAB in anterior and posterior jimenez. No peripheral edema. Abdominal exam: Abdomen soft and non-distended. Abdomen non-tender to palpation in all 4 quadrants. Bowel sounds active in LLQ. No hepatosplenomegaly. No ecchymosis Neuro: CN II-XII grossly intact. No nuchal rigidity. MSK: No posterior calf tenderness bilaterally, homans sign negative bilaterally. Posterior tibialis and radial pulse +2 bilaterally. Sensation intact in upper and lower extremities. Full active ROM in upper and lower extremities, 5/5 stregnth. Limitations: no limitations Course Vital Signs 10/02/18 18:03 Temperature 98.3 F Pulse Rate 86 Respiratory 16 Rate Blood Pressure 117/72 O2 Sat by Pulse 97 Oximetry Medical Decision Making - Medical Decision Making 42-year-old male patient no pertinent past medical history presents ED approximately 10 days of sinus pressure, rhinitis, sore throat, dry cough. Patient has not taken anything for this problem. Patient to this feels similar to Frontal sinus infections has had in the past. Patient states that she feels she is coughing because of the irritation of her throat. Patient states that the cough is non-productive. Patient denies chest pain shortness of breath. Patient denies any other complaints today. Patient vital signs stable, afebrile. Physical exam displayed: Frontal sinus pressure reproducible upon palpation. Shared decision making the patient. Patient comfortable with symptomatic treatment for sinusitis. Patient will be discharged with Flonase, decongestant. Patient additionally prescribed antibiotic to use if symptoms continue after 4 days. Patient will follow-up with primary care provider in 1-2 days. Patient return to ER if condition worsens in any way. Case discussed with Dr. Armijo. Disposition Clinical Impression: Sinusitis Disposition: HOME SELF-CARE Condition: Stable Instructions (If sedation given, give patient instructions): Sinusitis (ED) Additional Instructions: Patient to adhere to previously discussed treatment plan and will take medication(s) as directed. Patient to follow up with PCP in 1-2 days. Patient to return to ED if symptoms do not improve. This healthy primary care provider in 1-2 days. Please return to ER if condition worsens in anyway. Prescriptions: Oxymetazoline 0.05% Nasl [place] [Afrin 0.05% Nasal [place]] 2 spray EA NOSTRIL BID 3 Days #1 bottle Amoxicillin/Potassium Clav [Augmentin 875-125 Tablet] 1 each PO Q12HR #20 tab Fluticasone Propionate [Flonase Allergy Relief] 1 - 2 spray EA NOSTRIL DAILY 5 Days ml Is patient prescribed a controlled substance at d/c from ED?: No Referrals: None,Stated [REFERRING] - 1-2 days [facility] [Primary Care Provider] - 1-2 days
== END 2018-10-02 19:11 | disposition home or self-care (01) ==
LOC: EC 17:09
DX: J32.9 Chronic sinusitis, unspecified (principal); F17.200 Nicotine dependence, unspecified, uncomplicated; Z90.710 Acquired absence of both cervix and uterus
CPT/HCPCS: 99283

== ENCOUNTER 2019-06-24 16:07 | Emergency (ER) | payer OTHER ==
[2019-06-24 16:17] VITALS: BP 118/86; PULSE 95; RESP 16; TEMP 98.1
--- NOTE | 2019-06-24 16:58 | ED ---
Recheck HPI - General Chief Complaint: Recheck/Abnormal Lab/Rx Stated Complaint: swollen glands Time Seen by Provider: 06/24/19 16:19 Source: patient Mode of arrival: ambulatory Limitations: no limitations - History of Present Illness Initial Comments: 44-year-old female presenting for multiple complaints. Patient states she has had sore throat and swollen glands times one day. Denies fevers. Patient denies any difficulty swallowing or breathing. Patient states she is not sure if this is related or not however she has been losing hair had fatigue and weight gain over the past 3 months. Patient states she has not yet brought this up to her primary care provider. Patient presents emergency department today for sore throat and swollen glands. Patient upon arrival appears well nontoxic afebrile vital signs within acceptable limits. No other complaints - Related Data Previous Rx's Medication Instructions Recorded ARIPiprazole [Abilify] 2 mg PO DAILY #14 tab 10/10/17 Melatonin 3 mg PO HS tablet 10/10/17 Nicotine 14Mg/24Hr Patch [Habitrol] 1 patch TRANSDERM DAILY #28 patch 10/10/17 Sulfamethox-Tmp 800-160Mg [Bactrim 1 each PO BID #3 tab 10/10/17 DS 800-160 mg] Venlafaxine HCl ER [Effexor XR] 75 mg PO DAILY #14 cap.er.24h 10/10/17 Amoxicillin/Potassium Clav 1 each PO Q12HR #20 tab 10/02/18 [Augmentin 875-125 Tablet] Fluticasone Propionate [Flonase 1 - 2 spray EA NOSTRIL DAILY 5 10/02/18 Allergy Relief] Days ml Oxymetazoline 0.05% Nasl [place] 2 spray EA NOSTRIL BID 3 Days #1 10/02/18 [Afrin 0.05% Nasal [place]] bottle Amoxicillin 500 mg PO Q12HR 10 Days #20 cap 06/24/19 Allergies Allergy/AdvReac Type Severity Reaction Status Date / Time No Known Allergies Allergy Verified 06/24/19 16:17 Review of Systems ROS Statement: Those systems with pertinent positive or pertinent negative responses have been documented in the HPI. ROS Other: All systems not noted in ROS Statement are negative. Past Medical History Past Medical History: No Reported History Additional Past Medical History / Comment(s): Pt. denies medical issues. History of Any Multi-Drug Resistant Organisms: None Reported Past Surgical History: Section, Hysterectomy Past Anesthesia/Blood Transfusion Reactions: No Reported Reaction Past Psychological History: Depression Smoking Status: Current every day smoker - Past Family History Father Family Medical History: Unable to Obtain Additional Family Medical History / Comment(s): Pt. reports she was adopted. Medical history in her family is unknown. Mother Family Medical History: No Reported History Additional Family Medical History / Comment(s): Pt. reports she was adopted. Medical history in her family is unknown. General Exam - General Exam Comments Initial Comments: General: The patient is awake and alert, in no distress, and does not appear acutely ill. Eye: +3 mm pupils are equal, round and reactive to light, extra-ocular movements are intact. No nystagmus. There is normal conjunctiva bilaterally. No signs of icterus. Ears, nose, mouth and throat: There are moist mucous membranes and no oral lesions. Erythematous oropharynx with tonsillar exudates no tonsillar enlargement uvula midline. Tender anterior cervical lymphadenopathy. No tenderness to palpation of the thyroid gland. No palpable thyroid masses or swelling of the neck Neck: The neck is supple, there is no tenderness or JVD. Cardiovascular: There is a regular rate and rhythm. No murmur, rub or gallop is appreciated. Respiratory: Lungs are clear to auscultation, respirations are non-labored, breath sounds are equal. No wheezes, stridor, rales, or rhonchi. Musculoskeletal: Normal ROM, no tenderness. Strength 5/5. Sensation intact. Pulses equal bilaterally 2+. Neurological: A&O x 3. CN II-XII intact grossly, There are no obvious motor or sensory deficits. Coordination appears grossly intact. Speech is normal. Skin: Skin is warm and dry and no rashes or lesions are noted. Psychiatric: Cooperative, appropriate mood & affect, normal judgment. Limitations: no limitations Course Vital Signs 06/24/19 16:14 Temperature 98.1 F Pulse Rate 95 Respiratory 16 Rate Blood Pressure 118/86 O2 Sat by Pulse 100 Oximetry Medical Decision Making - Medical Decision Making 44-year-old female presenting today for chief complaint of sore throat and swollen painful glands times one day. Patient has painful cervical lymphadenopathy on physical examination with erythematous oropharynx. Patient be treated for pharyngitis. Patient states she has chronic complaints of fatigue and weight gain hair loss she is concerned her thyroid is not functioning properly. At this time given patient's chronic nature of this and she has established primary care I recommended she have further evaluation including evaluation for vitamin deficiencies, thyroid function in autoimmune disease for these complaints. Patient is agreeable with this care plan states she can have close follow-up this week. Patient discharged appearing well after discussed the case in detail by attending provider Dr. Boggs who reviewed chart. Disposition Clinical Impression: Pharyngitis, Hair loss, Chronic fatigue Disposition: HOME SELF-CARE Condition: Good Instructions (If sedation given, give patient instructions): Pharyngitis (ED) Additional Instructions: Please use medication as discussed. Please follow-up with family doctor in the next 2 days for fraw of chronic fatigue, hair loss, weight gain x months to ensure no underlying thryoid or autoimmune disease. Please return to emergency room if the symptoms increase or worsen or for any other concerns. Prescriptions: Amoxicillin 500 mg PO Q12HR 10 Days #20 cap Is patient prescribed a controlled substance at d/c from ED?: No Referrals: [facility] [Primary Care Provider] - 1-2 days Time of Disposition: 16:58
== END 2019-06-24 17:12 | disposition home or self-care (01) ==
LOC: EC 16:07
DX: J02.9 Acute pharyngitis, unspecified (principal); R53.82 Chronic fatigue, unspecified; L65.9 Nonscarring hair loss, unspecified; R63.5 Abnormal weight gain; F17.200 Nicotine dependence, unspecified, uncomplicated
CPT/HCPCS: 99283